=== PATIENT | male | born 1940 | race Hispanic/Latino ===

== ENCOUNTER 2019-10-06 20:09 | Emergency (ER) | payer OTHER ==
[~2019-10-06 20:09] MED LIST: AEC81 PO; ALBU0.63 IH; ATOR10 PO; CHOL100040 PO; CILO50TA PO; CLOP75TA32 PO; DONE10TA43 PO; FOLI1TAB85 PO; FURO20TA4 PO; GABA-531 PO; METO-408 PO; PANT40TA25 PO
[2019-10-06 21:07] LABS: BASOPHILS % (AUTO) 0.1 % (0.0-5.0); HEMATOCRIT 38.7 % (42-54); LYMPHOCYTES % (AUTO) 9.7 % (21.0-51.0); MEAN CORPUSCULAR HEMOGLOBIN 28.6 pg (27.0-33.0); MEAN CORPUSCULAR HGB CONC 32.6 g/dL (32.0-36.0); MONOCYTES % (AUTO) 7.2 % (3.0-13.0); NEUTROPHILS % (AUTO) 82.7 % (40.0-77.0); PLATELET COUNT (AUTO) 158 K/uL (130-400); RED CELL DISTRIBUTION WIDTH 16.3 % (11.0-15.5); WHITE BLOOD COUNT (AUTO) 10.5 K/uL (4.8-10.8)
[2019-10-06 21:17] LABS: CREATININE 1.3 mg/dL (0.5-1.5); POTASSIUM 3.8 mmol/L (3.5-5.1)
[2019-10-06 21:23] LABS: ALBUMIN 3.7 g/dL (3.5-5.0); BILIRUBIN,TOTAL 0.4 mg/dL (0.2-1.0); TOTAL PROTEIN, SERUM 6.9 g/dL (6.0-8.3)
[2019-10-06 21:26] LABS: RAPID GROUP A STREP NEGATIVE (NEGATIVE)
[2019-10-06 22:44] LABS: APPEARANCE,URINE Clear (CLEAR); BILIRUBIN,URINE Negative (NEGATIVE); COLOR,URINE Yellow (YELLOW); GLUCOSE, URINE (UA) Negative (NEGATIVE); KETONES,URINE Negative (NEGATIVE); LEUKOCYTE ESTERASE ,URINE Trace (NEGATIVE); NITRATE,URINE Negative (NEGATIVE); OCCULT BLOOD,URINE Negative (NEGATIVE); PH,URINE 6.5 (5.0-8.0); PROTEIN,URINE Negative (NEGATIVE)
[2019-10-06] MEDS ORDERED: PREDNISONE 20 MG TABLET ONE (23:15)
[2019-10-06] MEDS ORDERED: CEFTRIAXONE SODIUM 1 GM ONE (23:16)
[2019-10-06 23:21] LABS: BACTERIA,URINE None Seen /HPF (None Seen); RBC,URINE None Seen /HPF (0-1); SQUAMOUS EPITHELIAL CELL,UR Few /HPF (0-2); WBC,URINE None Seen /HPF (0-1)
[2019-10-06] MEDS ORDERED: IPRATROPIUM/ALBUTEROL SULFATE 3 ML SOLUTION IH ONE (23:32)
[2019-10-06] MEDS ORDERED: LEVOFLOXACIN 500 MG TABLET ONE (23:57)
== END 2019-10-07 00:36 | disposition home or self-care (01) ==
LOC: EDH 20:09
DX: U07.1 COVID-19 (principal); J44.1 Chronic obstructive pulmonary disease with (acute) exacerbation; R53.1 Weakness; R05 Cough; R50.9 Fever, unspecified; I10 Essential (primary) hypertension; E78.5 Hyperlipidemia, unspecified; I25.10 Atherosclerotic heart disease of native coronary artery without angina pectoris
CPT/HCPCS: 36415 ×2; 71045; 80053; 81001; 82550; 84484; 85025; 87635; 87804 ×2; 87880; 93005; 94640; 96374; 99285; J0696

== ENCOUNTER → 2020-04-02 | Outpatient (CLI) | payer OTHER ==
[~2020-04-02] MED LIST changes: -PANT40TA25 PO; +PANT40TA54 PO
--- NOTE | 2020-04-02 11:00 | NUR ---
MBSS COMPLETED. -S/S OF ASPIRATION. RECOMMEND MECHANICAL SOFT/CHOPPED, THIN LIQUIDS; PILLS WHOLE. STORE SALES MANAGER COORDINATED WITH Pt AND . THEY VERBALIZED UNDERSTANDING AND COMPLIANCE WITH RECOMMENDATIONS. STORE SALES MANAGER PROVIDED RECOMMENDATIONS IN Pt'S [place] LANGUAGE (ARMENIAN) VIA HANDOUT. ALL QUESTIONS ANSWERED AT THIS TIME. Addendum: 04/02/20 at 1605 by KARLA LINDO, [facility] Amended: Links added.
== END | disposition home or self-care (01) ==
LOC: RAH 11:11
PROVIDERS: ATTEND Internal Medicine
DX: R13.10 Dysphagia, unspecified (principal); K21.9 Gastro-esophageal reflux disease without esophagitis; R63.3 Feeding difficulties
CPT/HCPCS: 74230; 92611

== ENCOUNTER → 2022-06-10 | Outpatient (CLI) | payer OTHER ==
[~2022-06-10] MED LIST changes: -CILO50TA PO; +CILO50TA2 PO
== END | disposition home or self-care (01) ==
LOC: SHCH 10:58
PROVIDERS: ATTEND Internal Medicine
DX: I08.3 Combined rheumatic disorders of mitral, aortic and tricuspid valves (principal); I10 Essential (primary) hypertension; R00.1 Bradycardia, unspecified; E78.5 Hyperlipidemia, unspecified
CPT/HCPCS: 93306